=== PATIENT | female | born 1930 | race Caucasian/White ===

== ENCOUNTER 2016-12-07 05:06 | Emergency (ER) | payer MEDICARE ==
[2016-12-07] MEDS ORDERED: ONDANSETRON HCL/PF 2 MG/ML VIAL IV ONE ×2 (05:50→10:54)
--- NOTE | 2016-12-07 05:53 | ERNOTE ---
<Nick Walter - Last Filed: 12/07/16 07:58> Abdominal HPI - General Chief Complaint: Abdominal Pain Time Seen by Provider: 12/07/16 05:34 Source: patient Exam Limitations: no limitations - Immun/Allergies/Home Medications Immunizatons: IMMUNIZATION HX Immunizations Up to Date Yes History of Influenza Vaccine Yes Hx Pneumococcal Vaccination No Allergies/Adverse Reactions: Allergies bupropion HCl [From Wellbutrin] Allergy (Unknown, Verified 12/07/16 05:30) Sulfa (Sulfonamide Antibiotics) [Sulfa(Sulfonamide Antibiotics)] Allergy ( Unknown, Verified 12/07/16 05:30) Home Medications: HOME MEDICATIONS Simvastatin [Zocor] 20 mg PO HS 09/05/12 [Last Taken Unknown] Aspirin [Aspirin Chewable] 81 mg PO DAILY 12/07/16 [Last Taken Unknown] Beta-Carotene(A) W-C , E/Min [Ocuvite] 1 tab PO BID 12/07/16 [Last Taken Unknown ] Multivitamin [Multivitamins] 1 each PO DAILY 12/07/16 [Last Taken Unknown] Ondansetron [Zofran Odt] 4 mg PO Q4H PRN #10 tab 12/07/16 [Last Taken Unknown] Sucralfate [Carafate] 1 gm PO BID 12/07/16 [Last Taken Unknown] Tamsulosin HCl [Flomax] 0.4 mg PO DAILY #7 capsule 12/07/16 [Last Taken Unknown] Venlafaxine HCl [Effexor Xr] 150 mg PO DAILY 12/07/16 [Last Taken Unknown] oxyCODONE HCL/ACETAMINOPHEN [Percocet 5 MG/325 MG] 1 tab PO Q4H PRN #30 tab 11/15 [Last Taken Unknown] - History of Present Illness Narrative: Pt had onset of LLQ abd pain last evening, she told her daughter about it around midnight and has continued to worsen throughout the morning. She began vomiting around 04:00. Timing: getting worse Quality: moderate, aching Activities at Onset: none Associated Symptoms: Present: back pain, nausea, vomiting. Absent: diaphoresis , shortness of breath Prior Abdominal Problems: Present: similar symptoms - with kidney stones Review of Systems - Review of Systems Constitutional: Absent: recent illness, fever, chills EYE: Present: no symptoms reported ENT: Present: nose congestion, nasal drainage Respiratory: Absent: shortness of breath Cardiology: Absent: chest pain Gastrointestinal/Abdominal: Present: See HPI Genitourinary: Present: frequency - that is usual for her. Absent: pain, dysuria, hematuria Musculoskeletal: Present: back pain Skin: Present: no symptoms reported Neurological: Present: no symptoms reported Endocrine: Present: no symptoms reported Hematologic/Lymphatic: Present: no symptoms reported Psych: Present: no symptoms reported - Patient's Past Medical History Patient History - Medical: Depression, Kidney stone, Other Patient History - Cardiac/Respiratory: Asthma, COPD, Hyperlipidemia Patient History - Cancer: No Hx of Cancer Patient History - Surgical Procedures: Cholecystectomy, Total Hip Replacement Patient History - Other: None - Social History Living Situations: home Abuse History: No History of abuse Psych History: Hx of Depression Smoking Status: Former smoker Have you smoked in the past 12 months: No Do you dip or chew tobacco: No Alcohol Use: none Drug Use: none - Immunizations Immunizations Up to Date: Yes Hx Pneumococcal Vaccination: No History of Influenza Vaccine: Yes Physical Exam - Physical Exam General Appearance: Present: wd/wn, alert, mild distress Head Exam: Present: normal inspection, no evidence of injury Ears, Nose, Throat: Present: normal ENT inspection Neck: Present: normal inspection, nontender Respiratory: Present: no respiratory distress Cardiovascular/Chest: Present: regular rate, rhythm Gastrointestinal/Abdominal: Present: normal bowel sounds, nondistended, soft, tenderness - left upper and lower quads. Absent: distended, guarding, rebound Back Exam: Present: normal range of motion, CVA tenderness (L) Extremity Exam: Present: normal inspection, normal range of motion, no edema Neurological Exam: Present: alert, oriented, normal mood/affect, no motor/ sensory deficits Skin Exam: Present: normal color, warm/dry Lymphatic Exam: Present: no adenopathy ED Progress - Results and Orders Patient's Lab Results:: I have reviewed the patient's lab results. Results and Orders: Laboratory Tests 12/07/16 12/07/16 12/07/16 05:49 06:10 06:40 WBC 11.6 H Hgb 14.7 Hct 45.2 Plt Count 202 Neutrophils % 88.1 H Sodium 144 H Potassium 3.7 Chloride 104 BUN 16 D Creatinine 0.96 Random Glucose 162 H Calcium 8.8 Calcium Adj for Albumin 8.7 Total Bilirubin 0.6 AST 22 ALT 21 Alkaline Phosphatase 63 Total Protein 7.2 Albumin 3.7 Urine Color Yellow Urine Appearance Clear Urine pH 6.5 Ur Specific [place] 1.020 Urine Protein 15 H Urine Glucose (UA) Negative Urine Ketones 15 Urine Blood Negative Urine Nitrate Negative Urine Bilirubin Negative Prot Sulfosalicylic Acd Negative Urine Urobilinogen Normal Ur Leukocyte Esterase Negative Urine RBC None seen Urine WBC None seen Ur Epithelial Cells None seen Urine Bacteria None seen Urine Culture Comments No culture indicated - Vital Signs Patient's Vital Signs:: I have reviewed the patient's vital signs. Vital Signs: Vital Signs 12/07/16 12/07/16 12/07/16 05:23 05:31 05:42 Temperature 37.1 C Pulse Rate 88 81 Respiratory 18 18 Rate Blood Pressure 185/94 185/94 O2 Sat by Pulse 98 99 Oximetry - X-Ray X-Ray #1 X-Ray: abdomen Interpretation: Interp. by me X-ray Comments: mod stool retention bilateral. no a/f levels or evidence of obstruction - Progress/Reassessment Chief Complaint: Abdominal Pain Progress Note-Subjective: 12/07/16 07:13 Pt having increased pain again, ordered 1 mg morphine IV. Discussed lab results and recommended CT abd/ pelvis pt expresses agreement. - Transfer of Care Physician Sign Out: Nick Walter Receiving Physician: Julieta Hammond Pending Results: CT/MRI results Expected Disposition: Admit Departure - Departure Clinical Impression: Renal colic on left side Disposition: Home self-care Condition: Good Instructions: Renal Colic, [id number] Additional Instructions: follow up with Dr Boyer on Saturday, do not have anything to eat or drink that morning If the pain gets out of control or you can't keep any medications down return to the ER Referrals: Merlin Carrion MD [Associate] - 12/11/16 8:30 am Prescriptions: Ondansetron [Zofran Odt] 4 mg PO Q4H PRN #10 tab PRN Reason: Nausea And Vomiting oxyCODONE HCL/ACETAMINOPHEN [Percocet 5 MG/325 MG] 1 tab PO Q4H PRN #30 tab PRN Reason: Pain Tamsulosin HCl [Flomax] 0.4 mg PO DAILY #7 capsule <Julieta Hammond - Last Filed: 12/07/16 13:43> Abdominal HPI - Immun/Allergies/Home Medications Immunizatons: IMMUNIZATION HX Immunizations Up to Date Yes History of Influenza Vaccine Yes Hx Pneumococcal Vaccination No ED Progress - Results and Orders Patient's Lab Results:: I have reviewed the patient's lab results. - Vital Signs Patient's Vital Signs:: I have reviewed the patient's vital signs. Vital Signs: Vital Signs 12/07/16 12/07/16 12/07/16 05:23 05:31 05:42 Temperature 37.1 C Pulse Rate 88 81 Respiratory 18 18 Rate Blood Pressure 185/94 185/94 O2 Sat by Pulse 98 99 Oximetry 12/07/16 12/07/16 12/07/16 06:31 07:15 07:56 Temperature Pulse Rate 85 81 80 Respiratory 14 12 12 Rate Blood Pressure 188/110 190/101 177/84 O2 Sat by Pulse 97 95 97 Oximetry 12/07/16 12/07/16 12/07/16 08:19 08:49 09:59 Temperature Pulse Rate 84 85 77 Respiratory 12 12 12 Rate Blood Pressure 177/89 185/83 164/95 O2 Sat by Pulse 99 98 95 Oximetry - CT/Ultrasound CT/Ultrasound Narrative: CT abdomen/pelvis: left sided moderate renal obstruction, no definite stone, no diverticulosis - Progress/Reassessment Progress Note-Subjective: 12/07/16 10:00 pain resolved, just feels bloated, no nausea or vomiting, tolerated contrast awaiting CT results 12/07/16 11:[address] with radiologist, left sided moderate renal obstruction and decreased excretion suspicious for stone, though no definite stone visualized patient comfortable, discussed results of possible stone with patient and family 12/07/16 11:25 attempted to call urology clinic, paged Dr Boyer 12/07/16 11:59 called urology clinic, discussed with Dr Boyer nurse, will see patient on 12/11 at 08:30 NPO 12/07/16 12:10 discussed follow up plan with patient and family, patient tolerated flomax
[2016-12-07] MEDS ORDERED: ONDANSETRON HCL/PF 2 MG/ML VIAL ONE ×2 (05:58→10:54)
[2016-12-07] MEDS ORDERED: NORMAL SALINE 1,000 ML IV ONE (06:07)
[2016-12-07 06:14] LABS: Hematocrit 45.2 % (37.0-47.0); Hemoglobin 14.7 gm/dL (12.5-16.0); Mean Cell Volume 89.3 fl (78-100); Mean Corpuscular Hemoglobin 29.1 pg (27-31); Mean Corpuscular Hgb Conc 32.5 g/dl (32-36); Mean Platelet Volume 11.1 fl (6.0-9.5); Neutrophil # 10.2 K/mm3 (1.3-6.0); Neutrophil % 88.1 % (42-75.0); Platelet Count 202 K/mm3 (150-450); Red Blood Count 5.06 M/mm3 (4.2-5.4); White Blood Count 11.6 K/mm3 (4.0-10.5)
[2016-12-07 06:35] LABS: Albumin * 3.7 gm/dl (3.4-5.0); Anion Gap 15.8 mmol/L (6.8-13.8); BUN/Creatinine Ratio 16.7 (9.0-21.6); Bilirubin, Total 0.6 mg/dL (0.0-1.1); Ca. Corrected For Albumin 8.7 mg/dL (8.4-10.2); Calcium * 8.8 mg/dL (7.9-10.9); Carbon Dioxide 27.9 mmol/L (24-32.6); Potassium 3.7 mmol/L (3.4-4.6); Total Protein 7.2 gm/dL (6.2-8.2)
[2016-12-07 06:52] LABS: Urine Bilirubin Negative (NEGATIVE); Urine Blood Negative /ul (NEGATIVE); Urine Ketone 15 mg/dL (NEGATIVE); Urine Nitrite Negative (NEGATIVE); Urine Protein 15 mg/dL (NEGATIVE); Urine Urobilinogen Normal (NORMAL); Urine pH 6.5 pH (5.0-7.0)
[2016-12-07 07:02] LABS: Urine Appearance Clear; Urine Color Yellow
[2016-12-07 07:03] LABS: Urine Bacteria None Seen; Urine RBC None Seen /hpf (0-5); Urine WBC None Seen /hpf (0-5)
[2016-12-07] MEDS ORDERED: MORPHINE SULFATE 2 MG/ML DISP.SYRIN IV ONE ×2 (07:06→10:54)
[2016-12-07] MEDS ORDERED: MORPHINE SULFATE 2 MG/ML DISP.SYRIN ONE ×2 (07:08→10:54)
[2016-12-07] MEDS ORDERED: DIATRIZOATE MEGLUMINE, SODIUM 30 ML BTL ONE (07:08)
[2016-12-07] MEDS ORDERED: DIATRIZOATE MEGLUMINE, SODIUM 30 ML BTL PO ONE (07:14)
[2016-12-07 11:01] VITALS: BP 170/89
[2016-12-07] MEDS ORDERED: TAMSULOSIN HCL 0.4 MG CAP.SR.24H PO ONE ×2 (11:25→11:26)
== END 2016-12-07 12:15 | disposition home or self-care (01) ==
LOC: ER 05:06
DX: N23 Unspecified renal colic (principal); F32.89 Other specified depressive episodes; J44.9 Chronic obstructive pulmonary disease, unspecified; E78.5 Hyperlipidemia, unspecified; Z87.442 Personal history of urinary calculi
CPT/HCPCS: 36415; 74020; 74177; 80053; 81001; 85025; 96374; 96375; 99285; J2405